=== PATIENT | male | born 1950 | race Hispanic/Latino ===

== ENCOUNTER 2017-11-07 10:32 | Emergency (ER) | payer SELFPAY ==
[2017-11-07] MEDS ORDERED: LIDOCAINE 5% TOPICAL PATCH TP ONE (10:56)
[2017-11-07 11:07] LABS: APPEARANCE,URINE Clear (CLEAR); BILIRUBIN,URINE Negative (NEGATIVE); COLOR,URINE Yellow (YELLOW); GLUCOSE, URINE (UA) >=1000 mg/dL (NEGATIVE); KETONES,URINE Trace mg/dL (NEGATIVE); LEUKOCYTE ESTERASE ,URINE Negative (NEGATIVE); NITRATE,URINE Negative (NEGATIVE); OCCULT BLOOD,URINE Negative (NEGATIVE); PH,URINE 5.5 (5.0-8.0); PROTEIN,URINE Trace (NEGATIVE)
[2017-11-07 11:19] LABS: BACTERIA,URINE None Seen /HPF (None Seen); MUCUS,URINE Rare LPF (None Seen); RBC,URINE None Seen /HPF (0-1); SQUAMOUS EPITHELIAL CELL,UR Rare /LPF (0-2); WBC,URINE None Seen /HPF (0-1)
== END 2017-11-07 11:35 | disposition home or self-care (01) ==
LOC: EDH 10:32
DX: M54.5 Low back pain (principal); E11.9 Type 2 diabetes mellitus without complications; I10 Essential (primary) hypertension; Z72.0 Tobacco use
CPT/HCPCS: 81001

== ENCOUNTER 2017-11-08 15:44 | Emergency (ER) | payer SELFPAY | END 2017-11-08 16:16 | disposition home or self-care (01) | LOC: EDH 15:44 | DX: G89.29 Other chronic pain (principal); M54.5 Low back pain; E11.9 Type 2 diabetes mellitus without complications; I10 Essential (primary) hypertension; Z72.0 Tobacco use ==

== ENCOUNTER 2017-11-12 14:14 | Emergency (ER) | payer SELFPAY | END 2017-11-12 15:18 | disposition home or self-care (01) | LOC: EDH 14:14 | DX: G89.29 Other chronic pain (principal); M54.5 Low back pain; E11.9 Type 2 diabetes mellitus without complications; I10 Essential (primary) hypertension; Z98.890 Other specified postprocedural states; Z72.0 Tobacco use ==